=== PATIENT | female | born 1990 | race African-American/Black ===

== ENCOUNTER 2023-03-22 19:55 | Inpatient (IN) | payer OTHER ==
[2023-03-22] MEDS: ELECTROLYTE-148 SOLN 1,000 ML IV SCH (23:00)
[2023-03-22] MEDS ORDERED: DINOPROSTONE 10 MG VAGINAL SUPPOSITORY VG ONE (23:15)
[2023-03-22 23:20] LABS: BASO % 0.5 % (0-2.0); EOS % 1.1 % (0-4.5); HEMATOCRIT 35.3 % (32.4-45.2); HEMOGLOBIN 11.5 GM/dL (10.7-15.3); LYMPH % 23.2 % (8-40); MCH 25.6 pg (25.7-33.7); MCHC 32.6 g/dl (32.0-36.0); MEAN CELL VOLUME 78.6 fl (80-96); MEAN PLT VOLUME 8.8 fl (7.5-11.1); MONO % 8.3 % (3.8-10.2); NEUT % 66.9 % (42.8-82.8); PLATELET COUNT 351 10^3/uL (134-434); RBC 4.49 M/mm3 (3.60-5.2); RDW 17.8 % (11.6-15.6); WHITE BLOOD COUNT 11.4 K/mm3 (4.0-10.0)
[2023-03-22 23:27] LABS: INR 0.99 (0.83-1.09); PROTHROMBIN TIME (PATIENT) 11.5 SEC (9.7-13.0)
[2023-03-22 23:30] LABS: ACTIVATED PTT 30.8 SECONDS (25.2-36.5)
[2023-03-22 23:40] LABS: CALCIUM 10.6 mg/dL (8.5-10.1)
[2023-03-22 23:41] LABS: BLOOD UREA NITROGEN 8.9 mg/dL (7-18)
[2023-03-22 23:44] LABS: CREATININE 0.8 mg/dL (0.55-1.3)
[2023-03-22 23:46] LABS: BILIRUBIN,TOTAL 0.6 mg/dL (0.2-1); TOT PROT 6.9 g/dl (6.4-8.2)
[2023-03-23] MEDS ORDERED: BUTORPHANOL TARTRATE 1 MG/ML VIAL IVPB ONE (00:52)
[2023-03-23] MEDS ORDERED: PROMETHAZINE HCL 25 MG/1 ML VIAL IVPB ONE ×2 (00:52→13:45)
[2023-03-23] MEDS: LABETALOL HCL 200 MG TABLET (FP) PO SCH ×3 (01:00→22:00)
[2023-03-23 01:44] VITALS: BMI 43.0
[2023-03-23] MEDS ORDERED: LABETALOL HCL 100 MG TABLET (FP) ONE (01:46)
[2023-03-23] MEDS ORDERED: BUTORPHANOL TARTRATE 1 MG/ML VIAL ONE ×2 (03:21→20:37)
[2023-03-23] MEDS ORDERED: PROMETHAZINE HCL 25 MG/1 ML VIAL ONE ×2 (03:21→20:37)
[2023-03-23] MEDS: ELECTROLYTE-148 SOLN 1,000 ML IV SCH ×2 (07:40→14:45)
[2023-03-23] MEDS ORDERED: MISOPROSTOL 200 MCG TABLET PR ONE ×2 (12:30→13:00)
[2023-03-23] MEDS ORDERED: FLUCONAZOLE 150 MG TABLET PO ONE (13:00)
[2023-03-23] MEDS ORDERED: MISOPROSTOL 200 MCG TABLET NR ONE (13:00)
[2023-03-23] MEDS ORDERED: MISOPROSTOL 100 MCG TABLET PV ONE (13:00)
[2023-03-23] MEDS ORDERED: BUTORPHANOL TARTRATE 1 MG/ML VIAL IVPUSH ONE (13:45)
[2023-03-23] MEDS ORDERED: AMPICILLIN - 2 GM in SODIUM CHLORIDE 100 ML IVPB ONE (15:57)
[2023-03-23] MEDS ORDERED: OXYTOCIN 30 UNITS in 0.9% NS 30 UNIT/500 ML INFUS.BAG IVPB ONE (18:03)
[2023-03-23] MEDS ORDERED: OXYTOCIN 30 UNITS in 0.9% NS 30 UNIT/500 ML INFUS.BAG IVPB SCH (18:15)
[2023-03-24] MEDS ORDERED: FENTANYL/BUPIVACAINE/NS/PF - PCEA - 50 ML DISP.SYRIN EP ONE ×2 (01:29→06:25)
[2023-03-24] MEDS: FENTANYL/BUPIVACAINE/NS/PF - PCEA - 50 ML DISP.SYRIN EP SCH ×2 (01:45→06:30)
[2023-03-24] MEDS ORDERED: NALOXONE HCL 0.4 MG/ML VIAL IVPUSH PRN (03:58)
[2023-03-24] MEDS ORDERED: AMPICILLIN SODIUM 2 GM VIAL ONE (04:51)
[2023-03-24] MEDS: ELECTROLYTE-148 SOLN 1,000 ML IV SCH (04:55)
[2023-03-24] MEDS ORDERED: ceFAZolin SODIUM 1 GM VIAL ONE ×2 (07:46)
[2023-03-24] MEDS ORDERED: NITROGLYCERIN 50 MG/10 ML VIAL IVPB ONE (07:46)
[2023-03-24] MEDS ORDERED: ONDANSETRON 4 MG/2 ML VIAL ONE (07:46)
[2023-03-24] MEDS ORDERED: METOCLOPRAMIDE HCL INJECTION 10 MG/2 ML VIAL ONE (07:46)
[2023-03-24] MEDS ORDERED: METHYLERGONOVINE MALEATE 0.2 MG/1 ML AMP IM PRN (07:47)
[2023-03-24] MEDS ORDERED: ACETAMINOPHEN 325 MG TABLET (FP) PO PRN (07:47)
[2023-03-24] MEDS ORDERED: LIDOCAINE HCL/PF 2% SDV 5ML VIAL ONE ×3 (07:55→08:37)
[2023-03-24] MEDS ORDERED: morphine SULFATE/PF 1 MG/2 ML (2cc Syringe - QUVA) ONE (07:56)
[2023-03-24] MEDS ORDERED: EPINEPHrine 1:10,000 (P-F SYR) 1 MG/10 ML DISP.SYRIN ONE (07:56)
[2023-03-24] MEDS ORDERED: FENTANYL CITRATE/PF 50 MCG/ML VIAL ONE (07:57)
[2023-03-24] MEDS ORDERED: PHENYLEPHRINE HCL 10 MG/1 ML SINGLE DOSE VIAL ONE (08:37)
[2023-03-24 09:15] LABS: CORD BASE EXCESS -1.2 mmol/L (0-2); CORD HCO3 24.5 mmHg (20-29); CORD PCO2 44.4 mmHg (30-78); CORD pH 7.359 (7.14-7.44)
[2023-03-24] MEDS: OXYTOCIN 20 UNITS in 0.9% NS 20 UNIT/1,000 ML INFUS.BAG IV SCH ×2 (09:40→18:19)
[2023-03-24] MEDS ORDERED: ACETAMINOPHEN INJECTION 100 ML IVPB ONE (09:46)
[2023-03-24] MEDS ORDERED: OXYTOCIN 20 UNITS in 0.9% NS 20 UNIT/1,000 ML INFUS.BAG IV ONE (09:48)
[2023-03-24] MEDS ORDERED: ACETAMINOPHEN 1000 MG/100 ML BAG IVPB ONE (09:52)
[2023-03-24] MEDS ORDERED: AMPICILLIN - 1 GM in SODIUM CHLORIDE 100 ML IVPB SCH (10:00)
[2023-03-24] MEDS ORDERED: AMPICILLIN - 1 GM in SODIUM CHLORIDE 100 ML IVPB ONE (11:00)
[2023-03-24] MEDS: ENOXAPARIN NA (PORCINE) 40 MG/0.4 ML DISP.SYRIN SQ SCH (11:14)
[2023-03-24] MEDS: LABETALOL HCL 200 MG TABLET (FP) PO SCH ×2 (11:14→22:06)
[2023-03-24] MEDS ORDERED: CEFAZOLIN SODIUM 2 GM in DEXTROSE 5%-WATER 100 ML IVPB SCH (16:30)
[2023-03-24] MEDS ORDERED: IBUPROFEN 800 MG/8 ML IJ IVPB PRN (17:30)
[2023-03-24] MEDS: ACETAMINOPHEN 1000 MG/100 ML BAG IVPB PRN ×2 (18:02→23:26)
[2023-03-24] MEDS ORDERED: oxyCODONE HCL 5 MG TABLET PO PRN (19:47)
[2023-03-24] MEDS: SIMETHICONE 80 MG TAB.CHEW (FP) PO PRN (22:03)
[2023-03-25] MEDS: CEFAZOLIN SODIUM 2 GM in DEXTROSE 5%-WATER 100 ML IVPB SCH ×2 (01:34→10:09)
[2023-03-25] MEDS: SIMETHICONE 80 MG TAB.CHEW (FP) PO PRN ×3 (05:38→23:39)
[2023-03-25] MEDS: ACETAMINOPHEN 1000 MG/100 ML BAG IVPB PRN (05:38)
[2023-03-25 06:31] LABS: BASO % 0.3 % (0-2.0); EOS % 0.5 % (0-4.5); HEMATOCRIT 27.7 % (32.4-45.2); HEMOGLOBIN 8.8 GM/dL (10.7-15.3); LYMPH % 15.9 % (8-40); MCH 25.9 pg (25.7-33.7); MCHC 31.8 g/dl (32.0-36.0); MEAN CELL VOLUME 81.5 fl (80-96); MEAN PLT VOLUME 9.2 fl (7.5-11.1); MONO % 7.3 % (3.8-10.2); PLATELET COUNT 279 10^3/uL (134-434); RDW 17.7 % (11.6-15.6); WHITE BLOOD COUNT 13.8 K/mm3 (4.0-10.0)
[2023-03-25] MEDS: IBUPROFEN 600 MG TABLET (FP) PO PRN ×4 (07:07→23:40)
[2023-03-25] MEDS ORDERED: BISACODYL 10 MG SUPP.RECT RC PRN (07:47)
[2023-03-25] MEDS ORDERED: DIPHTH,PERTUSS(ACELL),TET 0.5 ML DISP.SYRIN IM ONE (10:00)
[2023-03-25] MEDS: ENOXAPARIN NA (PORCINE) 40 MG/0.4 ML DISP.SYRIN SQ SCH (10:09)
[2023-03-25] MEDS: LABETALOL HCL 200 MG TABLET (FP) PO SCH ×2 (11:16→22:28)
[2023-03-26] MEDS: SIMETHICONE 80 MG TAB.CHEW (FP) PO PRN ×4 (04:47→22:10)
[2023-03-26] MEDS: IBUPROFEN 600 MG TABLET (FP) PO PRN ×4 (04:47→22:10)
[2023-03-26] MEDS: ENOXAPARIN NA (PORCINE) 40 MG/0.4 ML DISP.SYRIN SQ SCH (09:57)
[2023-03-26] MEDS: LABETALOL HCL 200 MG TABLET (FP) PO SCH ×2 (10:00→22:09)
[2023-03-26 19:00] VITALS: RESP 18
[2023-03-27] MEDS: IBUPROFEN 600 MG TABLET (FP) PO PRN ×2 (01:56→06:29)
[2023-03-27] MEDS: SIMETHICONE 80 MG TAB.CHEW (FP) PO PRN (06:29)
[2023-03-27 06:37] LABS: BASO % 0.9 % (0-2.0); EOS % 2.8 % (0-4.5); HEMATOCRIT 28.2 % (32.4-45.2); MCH 26.1 pg (25.7-33.7); MEAN CELL VOLUME 81.6 fl (80-96); MEAN PLT VOLUME 8.8 fl (7.5-11.1); MONO % 6.9 % (3.8-10.2); NEUT % 53.4 % (42.8-82.8); PLATELET COUNT 335 10^3/uL (134-434); RBC 3.46 M/mm3 (3.60-5.2); RDW 17.3 % (11.6-15.6); WHITE BLOOD COUNT 9.4 K/mm3 (4.0-10.0)
[2023-03-27 08:49] VITALS: BP 120/78; PULSE 69; TEMP 98.5
[2023-03-27] MEDS: LABETALOL HCL 200 MG TABLET (FP) PO SCH (09:51)
[2023-03-27] MEDS: ENOXAPARIN NA (PORCINE) 40 MG/0.4 ML DISP.SYRIN SQ SCH (09:52)
== END 2023-03-27 13:40 | disposition home or self-care (01) | DRG 787 ==
LOC: JDEL 19:55 → JLDR 22:42 → J3W 03-24 11:35
PROVIDERS: ADMIT Obstetrics & Gynecology; ATTEND Obstetrics & Gynecology
PROC: 3E0P7VZ Introduction of Hormone into Female Reproductive, Via Natural or Artificial Opening (ICD-10-PCS; 2023-03-23)
PROC: 10D00Z1 Extraction of Products of Conception, Low, Open Approach (ICD-10-PCS; principal; 2023-03-24)
DX: O36.8330 Maternal care for abnormalities of the fetal heart rate or rhythm, third trimester, not applicable or unspecified (principal); O10.92 Unspecified pre-existing hypertension complicating childbirth; O41.03X0 Oligohydramnios, third trimester, not applicable or unspecified; O24.420 Gestational diabetes mellitus in childbirth, diet controlled; O62.0 Primary inadequate contractions; O62.1 Secondary uterine inertia; O99.214 Obesity complicating childbirth; O33.9 Maternal care for disproportion, unspecified; Z3A.39 39 weeks gestation of pregnancy; Z37.0 Single live birth
CPT/HCPCS: 36415; 36600; 76819-TC; 80053; 82803; 85025; 85610; 85730; 86780; 86850; 86900; 86901; 88307-TC; 90715; 94010